=== PATIENT | male | born 1990 | race African-American/Black ===

== ENCOUNTER 2020-05-17 16:03 | Inpatient (IN) | payer SELFPAY, OTHER ==
[2020-05-17] MEDS ORDERED: ONDANSETRON 4 MG/2 ML VIAL ONE (16:35)
[2020-05-17] MEDS ORDERED: NA CHLORIDE 0.9% 1,000 ML ONE ×3 (16:35→18:54)
--- NOTE | 2020-05-17 16:56 | RAD REPORT ---
EXAM DESCRIPTION: Duy Single View05/17/2020 4:34 pm CLINICAL HISTORY: cough COMPARISON: none FINDINGS: The lungs appear clear of acute infiltrate. The heart is normal size IMPRESSION: No acute abnormalities displayed
[2020-05-17 17:53] LABS: Potassium 5.2 mmol/L (3.5-5.1)
[2020-05-17 17:58] LABS: Absolute Lymphocytes (CBC) 2.1 K/uL (0.7-4.9); Basophils % 0.8 % (0-1.3); Hematocrit 44.1 % (39.6-49.0); Lymphocytes % 10.5 % (15.3-44.8); MPV 11.8 fL (7.6-11.3); RBC Red Blood Cell Count 4.92 M/uL (4.33-5.43)
--- NOTE | 2020-05-17 18:46 | ER ---
Nurse's Notes [facility] Name: Joey Paiz Age: 29 yrs Sex: Male : 1990 Arrival Date: 05/17/2020 Time: 16:06 Bed 14 Private MD: Diagnosis: Diabetes mellitus due to underlying condition with ketoacidosis without coma Presentation: 05/17 16:06 Chief complaint: Patient states: nausea/vomiting, decreased appetite, SOB x 7 days. Has sv not eaten solid food in 7 days. Pt reports he came home from work and he passed out. Stated that his immediate family had COVID 2 weeks ago but quarantined himself away from them. Coronavirus screen: Client denies travel out of the [place] in the last 14 days. nausea, vomiting. Client presents with at least one sign or symptom that may indicate coronavirus-19. Standard/surgical mask placed on the client. Provider contacted for isolation considerations. Ebola Screen: No symptoms or risks identified at this time. Risk Assessment: Do you want to hurt yourself or someone else? Patient reports no desire to harm self or others. Onset of symptoms was May 17, 2020. 16:06 Method Of Arrival: Wheelchair sv 16:06 Acuity: CRISTO 2 sv 16:06 Initial Sepsis Screen: Does the patient meet any 2 criteria? RR > 20 per min. HR > 90 sv bpm. Yes Does the patient have a suspected source of infection? No. Patient's initial sepsis screen is negative. Triage Assessment: 16:11 General: Appears distressed, obese, Behavior is flat. Pain: Denies pain. Respiratory: ls4 Reports shortness of breath at rest labored breathing Airway is patent Respiratory effort is even, Respiratory pattern is tachypnea Breath sounds are clear bilaterally. Onset: The symptoms/episode began/occurred gradually, the patient has moderate shortness of breath Denies cough. GI: GI: Abdomen is obese, Bowel sounds hypoactive in right upper quadrant, left upper quadrant, right lower quadrant and left lower quadrant Abd is soft and non tender X 4 quads. : No deficits noted. No signs and/or symptoms were reported regarding the genitourinary system. Historical: - Allergies: 16:09 PENICILLINS; sv - PMHx: 16:09 None; sv Screenin:28 Abuse screen: Denies threats or abuse. Denies injuries from another. Nutritional ls4 screening: No deficits noted. Tuberculosis screening: No symptoms or risk factors identified. Fall Risk None identified. Assessment: 19:00 Reassessment: Assumed patient from Harleen Shirley RN. vc 19:00 General: Appears in no apparent distress. uncomfortable, Behavior is cooperative, vc quiet. Pain: Denies pain. Neuro: Level of Consciousness is awake, obeys commands, Oriented to person, place. Cardiovascular: Reports shortness of breath, Denies chest pain, Patient's skin is warm and dry. Rhythm is sinus tachycardia. Respiratory: Respiratory effort is even, unlabored, Respiratory pattern is tachypnea. GI: Reports nausea, vomiting. : Urine is clear. Derm: Skin is intact, is healthy with good turgor, Skin temperature is warm. 20:00 Reassessment: Patient and/or family updated on plan of care and expected duration. Pain vc level reassessed. Patient resting with eyes closed, chest rising and falling equally. 21:00 Reassessment: Patient and/or family updated on plan of care and expected duration. Pain vc level reassessed. Patient denies pain at this time. Patient states symptoms have improved. Vital Signs: 16:06 BP 156 / 143; Pulse 113; Resp 32; Temp 98.9; Pulse Ox 100% ; Weight 149.69 kg; Height 6 sv ft. 0 in. (182.88 cm); 17:39 BP 151 / 102; Pulse 107; Resp 24; Pulse Ox 99% on R/A; Pain 0/10; ls4 19:15 BP 156 / 111; Pulse 107; Resp 24; Pulse Ox 100% on R/A; vc 20:00 BP 155 / 102; Pulse 113; Resp 22; Pulse Ox 100% on R/A; vc 21:00 BP 139 / 91; Pulse 109; Resp 22; Pulse Ox 100% on R/A; vc 16:06 Body Mass Index 44.76 (149.69 kg, 182.88 cm) sv ED Course: 16:06 Patient arrived in ED. sv 16:07 Triage completed. sv 16:09 Arm band placed on. sv 16:13 lunchroom monitor on. Pulse ox on. NIBP on. sv 16:15 [facility]C [facility]. kb 16:15 Alpa Peterson MD is Attending Physician. kb 16:16 Report given to Harleen GARCIA. sv 16:17 Harleen Shirley, RN is Primary Nurse. ls4 16:34 Chest Single View XRAY In Process Unspecified. EDMS 17:35 Hemoglobin A1c Sent. ls4 17:35 COVID-19 Sent. ls4 18:45 Cirilo Reid MD is Hospitalizing Provider. kb 18:45 Gary Reid MD is Hospitalizing Provider. kb 19:00 Patient has correct armband on for positive identification. Placed in gown. Bed in low vc position. Call light in reach. Side rails up X2. 21:23 Primary Nurse role handed off by Harleen Shirley, RADHA rv 21:23 Wolf Pearl, RADHA is Primary Nurse. rv 21:23 No provider procedures requiring assistance completed. Patient admitted, IV remains in vc place. Administered Medications: 17:29 Drug: NS 0.9% 1000 ml Route: IV; Rate: 1000 ml; Site: right antecubital; ls4 17:35 Drug: NS 0.9% 1000 ml Route: IV; Rate: 1000 ml; Site: right antecubital; ls4 17:36 Drug: Zofran (Ondansetron) 4 mg Route: IVP; Site: right antecubital; ls4 18:49 Drug: NS 0.9% 1000 ml Route: IV; Rate: 125 ml/hr; Site: right antecubital; ls4 18:50 Drug: Insulin Drip - (Insulin Regular Human 100 units, NS 0.9% 100 ml) {Co-Signature: ls4 em (Miguel Ángel Espinoza RN).} Route: IV; Rate: calculated rate; Site: right antecubital; 20:05 Drug: Lovenox 150 mg Route: Sub-Q; Site: right lower abdomen; vc Outcome: 18:45 Decision to Hospitalize by Provider. kb 21:23 Patient left the ED. rv 21:23 Admitted to ICU accompanied by nurse, via stretcher, room ER-11, on monitor, with vc chart, Other On insulin drip 21:23 Condition: stable 21:23 Instructed on the need for admit. Signatures: Dispatcher [employer] EDMD Nani Mark, CARLIE-C BOX CLOSING MACHINE OPERATOR-Meli Dia, RN RN Wolf Stafford, RN RN Harleen Corrigan RN RN ls4 Kirsten Nevarez RN RN Miguel Ángel Espinoza RN em Corrections: (The following items were deleted from the chart) 16:09 16:06 Acuity: CRISTO 3 sv sv 16:16 16:06 Chief complaint: Patient states: vomiting, decreased appetite, SOB x 7 days. Pt sv reports he came home from work and he passed out. sv 16:17 16:06 Chief complaint: Patient states: vomiting, decreased appetite, SOB x 7 days. Pt sv reports he came home from work and he passed out. STated that his immediate family had COVID 2 weeks ago but quarantined himself away from them. sv 17:36 17:35 NS 0.9% 1000 ml IV at 1000 ml in left antecubital ls4 ls4
--- NOTE | 2020-05-17 18:46 | EDPHYS ---
Physician Documentation [facility] Name: Joey Paiz Age: 29 yrs Sex: Male : 1990 Arrival Date: 05/17/2020 Time: 16:06 Bed 14 Private MD: ED Physician Alpa Peterson HPI: 05/17 16:34 This 29 yrs old Black Male presents to ER via Wheelchair with complaints of Shortness kb Of Breath, Nausea/Vomiting, Syncope. 16:34 The patient or guardian reports cough, that is intermittent, described as moderate, kb with no sputum, difficulty breathing. Onset: The symptoms/episode began/occurred 7 day(s) ago. Severity of symptoms: At their worst the symptoms were moderate, in the emergency department the symptoms are unchanged. Modifying factors: The symptoms are alleviated by nothing, the symptoms are aggravated by nothing. Associated signs and symptoms: Pertinent positives: nausea, vomiting, Pertinent negatives: chest pain, diarrhea, ear ache, fever, rhinorrhea, sore throat. The patient has not experienced similar symptoms in the past. The patient has not recently seen a physician. Pt reports cough, shortness of breath, nausea, vomiting for 7 days. States he was working outside today and when he got home he passed out. Reports polyuria. States "I haven't eaten anything in a week.". Historical: - Allergies: 16:09 PENICILLINS; sv - PMHx: 16:09 None; sv ROS: 16:32 Constitutional: Negative for fever, chills, and weight loss, ENT: Negative for injury, kb pain, and discharge, Neck: Negative for injury, pain, and swelling, Cardiovascular: Negative for chest pain, palpitations, and edema, Back: Negative for injury and pain, MS/Extremity: Negative for injury and deformity, Skin: Negative for injury, rash, and discoloration, Neuro: Negative for headache, weakness, numbness, tingling, and seizure. 16:32 Respiratory: Positive for cough, with no reported sputum, shortness of breath. 16:32 Abdomen/GI: Positive for nausea and vomiting. 16:32 : Positive for polyuria. 16:35 Neuro: Positive for syncope. kb Exam: 16:32 Head/Face: Normocephalic, atraumatic. Chest/axilla: Normal chest wall appearance and kb motion. Nontender with no deformity. No lesions are appreciated. Cardiovascular: Regular rate and rhythm with a normal S1 and S2. No gallops, murmurs, or rubs. Normal PMI, no JVD. No pulse deficits. Abdomen/GI: Soft, non-tender, with normal bowel sounds. No distension or tympany. No guarding or rebound. No evidence of tenderness throughout. Skin: Warm, dry with normal turgor. Normal color with no rashes, no lesions, and no evidence of cellulitis. MS/ Extremity: Pulses equal, no cyanosis. Neurovascular intact. Full, normal range of motion. Neuro: Awake and alert, GCS 15, oriented to person, place, time, and situation. Cranial nerves II-XII grossly intact. Motor strength 5/5 in all extremities. Sensory grossly intact. Cerebellar exam normal. Normal gait. 16:32 Constitutional: The patient appears alert, awake, uncomfortable. 16:32 Respiratory: the patient does not display signs of respiratory distress, Respirations: tachypnea, Breath sounds: are clear throughout. 17:26 ECG was reviewed by the Attending Physician. Vital Signs: 16:06 BP 156 / 143; Pulse 113; Resp 32; Temp 98.9; Pulse Ox 100% ; Weight 149.69 kg; Height 6 sv ft. 0 in. (182.88 cm); 17:39 BP 151 / 102; Pulse 107; Resp 24; Pulse Ox 99% on R/A; Pain 0/10; ls4 19:15 BP 156 / 111; Pulse 107; Resp 24; Pulse Ox 100% on R/A; vc 20:00 BP 155 / 102; Pulse 113; Resp 22; Pulse Ox 100% on R/A; vc 21:00 BP 139 / 91; Pulse 109; Resp 22; Pulse Ox 100% on R/A; vc 16:06 Body Mass Index 44.76 (149.69 kg, 182.88 cm) sv MDM: 16:15 Patient medically screened. kb 16:34 Data reviewed: vital signs, nurses notes. Data interpreted: Pulse oximetry: on room air kb is 100 %. Interpretation: normal. 18:39 Counseling: I had a detailed discussion with the patient and/or guardian regarding: the kb historical points, exam findings, and any diagnostic results supporting the discharge/admit diagnosis, lab results, radiology results, the need for further work-up and treatment in the hospital. Physician consultation: Odin SAMANIEGO was contacted at 18:44, regarding admission, to the ICU, patient's condition, and will see patient in ED, shortly. 05/17 16:17 Order name: CBC with Diff; Complete Time: 17:59 kb 05/17 16:17 Order name: Basic Metabolic Panel; Complete Time: 17:56 kb 05/17 16:17 Order name: CPK; Complete Time: 17:56 kb 05/17 16:17 Order name: D-Dimer; Complete Time: 18:15 kb 05/17 16:23 Order name: COVID-19 kb 05/17 17:21 Order name: Acetone, Serum; Complete Time: 17:45 ss 05/17 17:23 Order name: Hemoglobin A1c kb 05/17 17:26 Order name: Glucose, Ancillary Testing; Complete Time: 17:27 EDMS 05/17 18:49 Order name: SARS-COV-2 RT PCR; Complete Time: 18:51 EDMS 05/17 19:00 Order name: Basic Metabolic Panel EDMS 05/17 19:00 Order name: Basic Metabolic Panel EDMS 05/17 19:00 Order name: Basic Metabolic Panel EDMS 05/17 19:00 Order name: Basic Metabolic Panel EDMS 05/17 19:00 Order name: Calcium Level EDMS 05/17 19:00 Order name: Calcium Level EDMS 05/17 19:00 Order name: Calcium Level EDMS 05/17 19:00 Order name: Calcium Level EDMS 05/17 19:00 Order name: CBC with Automated Diff EDMS 05/17 19:00 Order name: CBC with Automated Diff EDMS 05/17 19:00 Order name: CBC with Automated Diff EDMS 05/17 19:00 Order name: CBC with Automated Diff EDMS 05/17 19:00 Order name: Lipid Profile EDMS 05/17 19:00 Order name: Lipid Profile EDMS 05/17 19:00 Order name: Magnesium EDMS 05/17 19:00 Order name: Magnesium EDMS 05/17 19:00 Order name: Magnesium EDMS 05/17 19:00 Order name: Magnesium EDMS 05/17 19:00 Order name: Phosphorus EDMS 05/17 16:17 Order name: Chest Single View XRAY; Complete Time: 17:06 kb 05/17 16:17 Order name: EKG; Complete Time: 16:18 kb 05/17 16:17 Order name: EKG - Nurse/Tech; Complete Time: 17:37 kb 05/17 16:17 Order name: IV Start; Complete Time: 17:35 kb 05/17 16:23 Order name: Blood Glucose Level; Complete Time: 17:35 kb 05/17 19:00 Order name: CONS Diabetic Education Consul EDMS 05/17 19:00 Order name: CONS Pharmacy Consult EDMS 05/17 19:00 Order name: NPO EDMS 05/17 19:00 Order name: Phosphorus EDMS 05/17 19:00 Order name: Phosphorus EDMS 05/17 19:00 Order name: Phosphorus EDMS 05/17 19:17 Order name: Glucose, Ancillary Testing; Complete Time: 19:17 EDMS 05/17 20:53 Order name: Glucose, Ancillary Testing; Complete Time: 20:53 EDMS EC:26 Rate is 111 beats/min. Rhythm is regular. QRS Broussard is Normal. AL interval is normal at kb 140 msec. QRS interval is normal at 92 msec. QT interval is normal at 344 msec. Administered Medications: 17:29 Drug: NS 0.9% 1000 ml Route: IV; Rate: 1000 ml; Site: right antecubital; ls4 17:35 Drug: NS 0.9% 1000 ml Route: IV; Rate: 1000 ml; Site: right antecubital; ls4 17:36 Drug: Zofran (Ondansetron) 4 mg Route: IVP; Site: right antecubital; ls4 18:49 Drug: NS 0.9% 1000 ml Route: IV; Rate: 125 ml/hr; Site: right antecubital; ls4 18:50 Drug: Insulin Drip - (Insulin Regular Human 100 units, NS 0.9% 100 ml) {Co-Signature: ls4 em (Miguel Ángel Espinoza RN).} Route: IV; Rate: calculated rate; Site: right antecubital; 20:05 Drug: Lovenox 150 mg Route: Sub-Q; Site: right lower abdomen; vc Disposition: 05/17/20 18:45 Hospitalization ordered by Gary Reid for Inpatient Admission. Preliminary diagnosis is Diabetes mellitus due to underlying condition with ketoacidosis without coma. - Bed requested for Intensive Care Unit. - Status is Inpatient Admission. rv - Condition is Stable. - Problem is new. - Symptoms are unchanged. Signatures: Dispatcher [employer] EDVA Nani Mark, CARLIE-C LOGISTICS/SHIPPER-Meli Dia, RN RN sv Wolf Pearl RN RN rv Harleen Shirley, RADHA RN ls4 Kirsten Nevarez RN RN Miguel Ángel Espinoza RN em Corrections: (The following items were deleted from the chart) 17:41 16:23 CORONAVIRUS ordered. EDVA EDMS 17:42 16:19 CORONAVIRUS+MR.LAB.BRZ ordered. [facility] EDMS 21:23 18:45 Hospitalization Ordered by Gary Reid MD for Inpatient Admission. rv Preliminary diagnosis is Diabetes mellitus due to underlying condition with ketoacidosis without coma. Bed requested for Intensive Care Unit. Status is Inpatient Admission. Condition is Stable. Problem is new. Symptoms are unchanged. kb
[2020-05-17] MEDS ORDERED: INSULIN -REGULAR HUMAN 50 UNIT/0.5 ML ML ONE (18:54)
[2020-05-17] MEDS ORDERED: NA CHLORIDE 0.9% 100 ML IV ONE (18:54)
[2020-05-17] MEDS: INSULIN -REGULAR HUMAN 100 UNIT in NA CHLORIDE 0.9% 100 ML IV SCH (19:30)
[2020-05-17] MEDS ORDERED: D50W 25 GM/50 ML SYRINGE/VIAL IV PRN (19:43)
[2020-05-17] MEDS ORDERED: GLUCAGON 1 MG/VIAL IM PRN (19:43)
--- NOTE | 2020-05-17 19:48 | P.HP ---
Certification for Inpatient With expected LOS: >2 Midnights Patient will require the following post-hospital care: None Practitioner: I am a practitioner with admitting privileges, knowledge of patient current condition, hospital course, and medical plan of care. Services: Services provided to patient in accordance with Admission requirements found in Title 42 Section 412.3 of the Code of Federal Regulations <Odin Stubbs - Last Filed: 05/17/20 19:42> Patient History Date of Service: 05/17/20 Primary Care Provider: None Reason for admission: Diabetic ketoacidosis History of Present Illness: 29-year-old male morbidly obese with known past medical history presents to the emergency room complaining of shortness of breath, nausea and vomiting. Patient states that he has had polyuria and polydipsia and states it has been difficult to breathe. States that the onset has been the past 2 weeks but the last week he has had nausea, vomiting that has progressively worsened. Today he states he was working outside on his vehicle and when he got home he passed out. Patient states he has not been able the eat anything in the week. In the emergency room patient's lab work is significantly abnormal. He is found to be in diabetic ketoacidosis with a calculated gap of 25. Glucose levels 0707, elevated D-dimer of 795, creatinine of 1.71, white cell count of 19.9 and a moderate to high acetone. This is likely a new diagnosis of diabetes. Patient was started on insulin drip, bolused IV fluids which improved the patient is feeling. On physical exam patient is alert and oriented x4. He is in no distress but is complaining of being extremely thirsty. Patient also admits to having several family members that are Covid positive but states he has been very careful and has been isolating himself from them. In the emergency room his rapid Covid screening was negative. Home medications list reviewed: Yes (No medication) - Past Medical/Surgical History Has patient received pneumonia vaccine in the past: No Diabetic: Yes -: New diagnosis diabetes mellitus -: More obesity -: None Psychosocial/ Personal History: Lives at home with fiancee - Social History Smoking Status: Current every day smoker Smoking therapy provided: No Patient receptive to therapy: No Alcohol use: No CD- Drugs: No Caffeine use: No Place of Residence: Home <Odin Stubbs - Last Filed: 05/17/20 19:42> Date of Service: 05/18/20 - Family History Family History: Reviewed- Non-Contributory <Giovanni Sheikh - Last Filed: 05/18/20 17:07> Allergies Penicillins Allergy (Verified 05/17/20 19:43) Anaphylaxis Review of Systems General: Other (Polydipsia ), As per HPI Eyes: Unremarkable ENT: Unremarkable Respiratory: Shortness of Breath Cardiovascular: Unremarkable Gastrointestinal: Nausea, Vomiting Genitourinary: Frequency Musculoskeletal: Unremarkable Integumentary: As per HPI Neurological: As per HPI Lymphatics: Unremarkable <Odin Stubbs - Last Filed: 05/17/20 19:42> Physical Examination - Vital Signs Temperature: 98.9 F Blood Pressure: 151/102 Pulse: 107 Respirations: 24 Pulse Ox (%): 99 (RA) - Physical Exam General: Alert, In no apparent distress, Oriented x3 HEENT: Atraumatic, Normocephalic, PERRLA, Mucous membr. moist/pink Neck: Supple, Other (Trachea midline) Respiratory: Clear to auscultation bilaterally, Normal air movement Cardiovascular: No edema, Normal pulses, Normal S1 S2 Capillary refill: <2 Seconds Gastrointestinal: Normal bowel sounds, Soft and benign Musculoskeletal: No clubbing, No swelling, No contractures, No erythema Integumentary: No rashes, No breakdown, No significant lesion Neurological: Normal gait, Normal speech, Normal strength at 5/5 x4 extr, Normal tone - Studies Laboratory Data (last 24 hrs) 05/17/20 17:08: Sodium 126 L, Potassium 5.2 H, BUN 23 H, Creatinine 1.71 H, Glucose 707 H* 05/17/20 17:08: WBC 19.9 H, Hgb 13.8, Hct 44.1, Plt Count 296 <Odin Stubbs - Last Filed: 05/17/20 19:42> - Studies Laboratory Data (last 24 hrs) 05/17/20 17:08: Sodium 126 L, Potassium 5.2 H, BUN 23 H, Creatinine 1.71 H, Glucose 707 H* 05/17/20 17:08: WBC 19.9 H, Hgb 13.8, Hct 44.1, Plt Count 296 <Giovanni Sheikh - Last Filed: 05/18/20 17:07> Assessment and Plan - Plan Impression: Diabetic ketoacidosis likely new diagnosis: Diabetes mellitus-new diagnosis: Metabolic acidosis: Acute kidney injury: Shortness of breath with an elevated D-dimer: Leukocytosis: Plan: Diabetic ketoacidosis likely new diagnosis: Patient was found to have a gap of 25, glucose levels of 707. He was started on an insulin drip and given IV fluids. Patient is stable, alert and oriented times and in no distress. Can have ice chips. Monitor vital per protocol. Diabetes mellitus-new diagnosis: Patient found to have blood glucose of 707 on admission to ED. This is likely a new diagnosis of diabetes mellitus. Will need diabetic education and medications prior to discharge. Also follow up with PCP patient does not have a PCP. Metabolic acidosis: Secondary to diabetic ketoacidosis. Monitor labs per protocol. Acute kidney injury: Likely secondary to dehydration from diabetic ketoacidosis and working outdoors all day. Monitor creatinine levels. Shortness of breath with an elevated D-dimer: Patient's Covid screening was negative despite having several family members positive at home. Patient did have an elevated D-dimer and was complaining of shortness of breath but due to elevation in creatinine levels CT a PE protocol to rule out a PE cannot be done at this time. Will cover patient with Lovenox 1 mg/kg for now until CTA to rule out PE can be completed. Patient's O2 saturations are 98% to 100% on room air. Leukocytosis: Etiology unclear. Patient does not appear septic and does not appear to have an infection. Will cover empirically with Rocephin and azithromycin. Patient is allergic to penicillins. Will adjust antibiotic medications as needed. Discharge Plan: Home Plan to discharge in: Greater than 2 days - Advance Directives Does patient have a Living Will: No Does patient have a Durable POA for Healthcare: No - Code Status/Comfort Care Code Status Assessed: Yes Time Spent Managing Pts Care (In Minutes): 55 <Odin Stubbs - Last Filed: 05/17/20 19:42> - Plan Case discussed in detail with physician guest services assistant. Patient also found to have right upper back abscess. This was addressed in detail with surgery. Please see progress note for details. <Giovanni Sheikh - Last Filed: 05/18/20 17:07>
[2020-05-17] MEDS: NACHLORIDE 0.45% 1,000 ML IV SCH (20:00)
[2020-05-17] MEDS ORDERED: ENOXAPARIN 100 MG/ML SYR SQ ONE (20:13)
[2020-05-17] MEDS ORDERED: NACHLORIDE 0.45% 1,000 ML IV ONE (20:25)
[2020-05-17 21:48] VITALS: BMI 47.5
[2020-05-17 22:42] LABS: Potassium 4.3 mmol/L (3.5-5.1)
[2020-05-17 23:19] LABS: Urine Appearance CLOUDY; Urine Blood 2+ (NEG); Urine Color YELLOW; Urine Glucose 3+ (NEG); Urine Protein 2+ (NEG); Urine Specific Gravity >=1.030 (1.005-1.030); Urine pH 5.5 (5.0-7.0)
[2020-05-17 23:42] LABS: Urine Microscopic Reflex ORDER UMIC
[2020-05-18 00:09] LABS: Urine Bilirubin NEGATIVE (NEG)
[2020-05-18] MEDS: NACHLORIDE 0.45% 1,000 ML IV SCH ×5 (00:34→20:04)
[2020-05-18] MEDS: HEPARIN 5000 UNIT/ML 1 ML VIAL SQ SCH ×3 (00:35→21:15)
[2020-05-18] MEDS ORDERED: HEPARIN 5000 UNIT/ML 1 ML VIAL ONE ×2 (00:44→20:36)
[2020-05-18] MEDS ORDERED: NACHLORIDE 0.45% 1,000 ML IV ONE ×2 (00:44→04:43)
[2020-05-18 00:46] LABS: Urine Coarse Granular Casts 0-5 /LPF (NONE SEEN)
[2020-05-18 00:47] LABS: Urine Bacteria 20-50 /HPF (NONE SEEN); Urine Culture Reflex Order REFLEXED; Urine RBC <5 /HPF (NONE SEEN); Urine Urothelial Cells <5 /HPF (NONE SEEN); Urine Yeast FEW (NONE SEEN)
[2020-05-18] MEDS ORDERED: PIPER/TAZO/NS 3.375gm 100 ML IV SCH (01:00)
[2020-05-18] MEDS: D5 0.45 NS 1,000 ML IV SCH ×5 (01:40→21:15)
[2020-05-18] MEDS: INSULIN -REGULAR HUMAN 100 UNIT in NA CHLORIDE 0.9% 100 ML IV SCH (04:46)
[2020-05-18] MEDS ORDERED: NA CHLORIDE 0.9% 100 ML IV ONE (04:47)
[2020-05-18] MEDS ORDERED: INSULIN -REGULAR HUMAN 50 UNIT/0.5 ML ML ONE (04:47)
[2020-05-18 06:02] LABS: Absolute Lymphocytes (CBC) 1.4 K/uL (0.7-4.9); Basophils % 0.5 % (0-1.3); Hematocrit 39.1 % (39.6-49.0); Lymphocytes % 7.2 % (15.3-44.8); MPV 10.9 fL (7.6-11.3); RBC Red Blood Cell Count 4.44 M/uL (4.33-5.43)
[2020-05-18 06:17] LABS: Magnesium 2.5 mg/dL (1.8-2.4); Phosphorus 2.1 mg/dL (2.5-4.9)
[2020-05-18 06:50] LABS: Potassium 4.1 mmol/L (3.5-5.1)
[2020-05-18 08:25] LABS: Thyroid Stimulating Hormone 0.164 uIU/mL (0.360-3.740)
[2020-05-18] MEDS ORDERED: CEFTRIAXONE 1 GM/NS 50 ML 1 GM/50 ML BAG IV SCH (09:00)
[2020-05-18] MEDS ORDERED: AZITHROMYCIN IV 500 MG in NA CHLORIDE 0.9% 250 ML IVPB SCH (09:00)
[2020-05-18] MEDS ORDERED: Levofloxacin 750mg IV 0 MG/0 ML BAG IV ONE (09:14)
[2020-05-18] MEDS ORDERED: Levofloxacin500mg IV 500 MG/100 ML BAG IV ONE (09:37)
--- NOTE | 2020-05-18 09:39 | P.PN ---
Subjective Date of Service: 05/18/20 Primary Care Provider: None Chief Complaint: Diabetic ketoacidosis Subjective: Other (Patient appears improved. No significant nausea vomiting. Patient noted to have a abscess to the right upper back.) Physical Examination - Vital Signs Temperature: 99.1 F Blood Pressure: 123/87 Pulse: 99 Respirations: 22 Pulse Ox (%): 100 - Physical Exam General: Alert, In no apparent distress, Cooperative HEENT: Atraumatic Neck: Supple Respiratory: Clear to auscultation bilaterally, Normal air movement Cardiovascular: Normal pulses, Regular rate/rhythm Gastrointestinal: Normal bowel sounds, No tenderness, No masses, No rebound, No guarding Integumentary: Other (Abscess to the right upper back. Fluctuance noted. Exudate noted with compression. Area is about 2-3 inches in diameter.) Neurological: Normal speech, Normal strength at 5/5 x4 extr, Normal tone, Normal affect - Studies Laboratory Data (last 24 hrs) 05/17/20 17:08: Sodium 126 L, Potassium 5.2 H, BUN 23 H, Creatinine 1.71 H, Glucose 707 H* 05/17/20 17:08: WBC 19.9 H, Hgb 13.8, Hct 44.1, Plt Count 296 Medications List Reviewed: Yes Assessment & Plan Discharge Plan: Home Plan to discharge in: 48 Hours Physician Review Additional Text: Impression: Diabetic ketoacidosis with new diagnosis of diabetes type 2 Leukocytosis secondary to Right upper back abscess Hyperlipidemia Obesity, BMI 47.5 Plan: Diabetic ketoacidosis with new diagnosis of diabetes type 2: Continue with insulin drip. Continue IV fluids. Continue to monitor closely and adjust IV fluids and insulin. Gap still not close. Once gap closed will adjust insulin accordingly. Will obtain A1c. Patient will likely require long-term insulin therapy. Patient will need diabetic education once medically stable. Leukocytosis secondary to Right upper back abscess: Spoke with surgery. Plan is for surgical intervention/irrigation and debridement. Continue antibiotic therapy. Obtain blood and wound culture. Hyperlipidemia: Patient will require medication once taking good oral intake. Obesity, BMI 47.5: Will address lifestyle modification education. Time Spent Managing Pts Care (In Minutes): 55
[2020-05-18] MEDS: Levofloxacin500mg IV 500 MG/100 ML BAG IV SCH (09:43)
[2020-05-18] MEDS: NA CHLORIDE 0.9% 500 ML ONE ×2 (09:45→10:53)
[2020-05-18 09:49] LABS: Potassium 4.1 mmol/L (3.5-5.1)
[2020-05-18] MEDS ORDERED: SODIUM BICARB 50 MEQ/50ML VIAL ONE (10:13)
[2020-05-18] MEDS: VANCOMYCIN 2 GM in NA CHLORIDE 0.9% 500 ML IVPB SCH ×2 (10:19→20:00)
[2020-05-18] MEDS ORDERED: MIDAZOLAM HCL 2 MG/2 ML INJ ONE (10:59)
[2020-05-18] MEDS ORDERED: LIDOCAINE 1% MPF 5 ML VIAL ONE (10:59)
[2020-05-18] MEDS ORDERED: FENTANYL CITR 100 MCG/2 ML ONE ×2 (10:59→11:44)
[2020-05-18] MEDS ORDERED: propofoL 200 MG/20 ML VIAL IV ONE (10:59)
[2020-05-18] MEDS ORDERED: ROCURONIUM 50 MG/5 ML VIAL IV ONE (11:26)
[2020-05-18] MEDS ORDERED: ONDANSETRON 4 MG/2 ML VIAL ONE ×2 (11:39→20:36)
[2020-05-18] MEDS ORDERED: KETOROLAC 30 MG/ML INJ ONE (11:39)
[2020-05-18] MEDS ORDERED: dexAMETHasone 10 MG/ML VIAL ONE (11:39)
--- NOTE | 2020-05-18 11:41 | P.OP ---
Blacking Machine Operator: NONE,NONE Preoperative diagnosis: Abscess and cellulitis right back Postoperative diagnosis: same Primary procedure: I and D and Debridement Right Back Abscess Anesthesia: General Estimated blood loss: min Specimen: C&S Findings: as above Complications: None Transferred to: Recovery Room Condition: Good
[2020-05-18] MEDS ORDERED: HYDROCODONE/APAP 7.5/325 MG TAB PO PRN (11:43)
[2020-05-18] MEDS ORDERED: METOCLOPRAMIDE 10 MG/2mL INJ ONE (11:43)
--- NOTE | 2020-05-18 11:43 | PREOPCON ---
Date of Consultation: 05/18/2020 Reason: Abscess, right back. History Of Present Illness: The patient is a 29-year-old gentleman who comes in with shortness of br eath. No nausea or vomiting. Workup revealed diabetic ketoacidosis and was found to have an abscess with leukocytosis in the back. I was consulted. He is awake, alert, thirsty. He did not know he mathew d diabetes prior to this event. He denies any sore throat, runny nose, cough, headaches, or dizzines s. No chest pain. He has several family members who were COVID positive. In the ER, his rapid COVI D screen was negative. He is anorexic and no fever or chills. Review of Systems: Otherwise unremarkable. Past Medical History: Newly-diagnosed diabetes, morbid obesity. Past Surgical History: No surgeries before. Allergies: PENICILLIN. Social History: He does smoke. Denies drinking. Family History: Noncontributory. Physical Examination: Vital signs: He is hypertensive slightly, 151/102; pulse rate is 107; respirations 24. His temperat ure is 98.9. General: He is awake and alert. Dry mucous membranes. Head and neck: Cranial nerves 2 through 12 grossly within normal limits. No neck masses. No JVD. Throat clear. Neck is supple. Chest: Clear. Heart: S1 and S2. Abdomen: Soft, nondistended, nontender. Positive bowel sounds. Extremities: Neurovascularly intact. Neurologic: Nonfocal. Back: Right back, there is an area of approximately 10 x 10 cm that is warm with induration with hugo tral fluctuance and some necrosis in the middle of it. Laboratory Data: White count is 19.3 with a left shift. Chemistry reviewed. His triglycerides and cholesterol are elevated. Glucose is still around 300. CO2 is 10. CRP is 27.5. Procalcitonin is 0. 08. Assessment: Abscess, cellulitis, right back with diabetic ketoacidosis. Recommendations: Continue antibiotics, resuscitation and when medically stable, we will proceed with incision, drainage and debridement of the right back abscess. The patient understands the risks, be nefits, and alternatives and agrees to the procedure. /MODL Voice ID: [id number] Report ID: [id number]
[2020-05-18 12:24] VITALS: O2SAT 95
[2020-05-18] MEDS ORDERED: SUCCINYLCHOLINE 20 MG/ML (10 ML) IV ONE (12:40)
[2020-05-18] MEDS ORDERED: METOPROLOL TARTRATE 5 MG/5 ML INJ IV PRN (13:29)
[2020-05-18] MEDS ORDERED: D5 0.2 NS 0 ML IV ONE (14:27)
[2020-05-18] MEDS ORDERED: D5 0.45 NS 1,000 ML IV ONE ×2 (14:28→21:25)
[2020-05-18 16:27] LABS: Potassium 4.2 mmol/L (3.5-5.1)
[2020-05-18] MEDS: ONDANSETRON 4 MG/2 ML VIAL IV PRN (20:30)
[2020-05-18] MEDS ORDERED: VANCOMYCIN 1 GM/VIAL ONE (20:37)
[2020-05-18] MEDS ORDERED: NA CHLORIDE 0.9% 500 ML ONE (20:37)
[2020-05-18 21:09] LABS: Potassium 4.8 mmol/L (3.5-5.1)
[2020-05-18] MEDS ORDERED: NA CHLORIDE 0.9% 1,000 ML IV ONE (21:34)
[2020-05-18 22:12] LABS: Arterial Blood Carboxyhemoglob 2.7 % (0-1.5); Blood Gas Oxyhemoglobin 95.1 % (94-97); Blood O2 Saturation 98.6 % (92-98.5)
--- NOTE | 2020-05-18 22:53 | OP ---
Date of Procedure: 05/18/2020 Surgeon: Josue Shepard MD Manager Production: None. Preoperative Diagnosis: Right back abscess and cellulitis. Postoperative Diagnosis: Right back abscess and cellulitis. Procedure: Incision, drainage, and debridement of right back abscess. Specimens: Culture and sensitivity and debridement tissue. Findings: As above. Anesthesia: General. Complications: None. The patient tolerated the procedure in stable condition, taken to Recovery in good general condition. Procedure In Detail: The patient was brought to the OR and placed in supine position. General anest hesia was begun. The patient was placed in the left lateral position, prepped and draped in the usua l sterile fashion. Lidocaine 1% was infiltrated in a field block fashion. A 15-blade was used to ma ke approximately a 6 x 3 cm incision to excise the necrotic tissue that was present in the central of the abscess and then pus was evacuated, loculation were broken up, necrotic tissue debrided all the way down to some healthy tissue. Wound irrigated. Bleeding controlled with cautery and then wet-to- dry normal saline dressing change applied. The patient tolerated the procedure in stable condition, taken to Recovery in good general condition. /MODL Voice ID: [id number] Report ID: [id number]
[2020-05-18] MEDS ORDERED: NA CHLORIDE 0.9% 1,000 ML ONE (23:12)
[2020-05-19 00:47] LABS: Potassium 4.1 mmol/L (3.5-5.1)
[2020-05-19] MEDS: NACHLORIDE 0.45% 1,000 ML IV SCH ×4 (02:44→22:42)
[2020-05-19] MEDS: D5 0.45 NS 1,000 ML IV SCH ×3 (04:20→17:40)
[2020-05-19] MEDS ORDERED: INSULIN -REGULAR HUMAN 50 UNIT/0.5 ML ML ONE (04:23)
[2020-05-19] MEDS ORDERED: NA CHLORIDE 0.9% 100 ML IV ONE (04:23)
[2020-05-19] MEDS: INSULIN -REGULAR HUMAN 100 UNIT in NA CHLORIDE 0.9% 100 ML IV SCH (04:26)
[2020-05-19 04:46] LABS: Basophils % 0.6 % (0-1.3); Hematocrit 38.1 % (39.6-49.0); Lymphocytes % 8.5 % (15.3-44.8); MPV 10.4 fL (7.6-11.3); RBC Red Blood Cell Count 4.38 M/uL (4.33-5.43)
[2020-05-19 05:05] LABS: Magnesium 2.5 mg/dL (1.8-2.4); Phosphorus 1.1 mg/dL (2.5-4.9); Potassium 3.6 mmol/L (3.5-5.1)
[2020-05-19] MEDS ORDERED: NA CHLORIDE 0.9% 0 ML ONE (06:25)
[2020-05-19] MEDS ORDERED: NACHLORIDE 0.45% 1,000 ML IV ONE ×2 (06:27→14:27)
[2020-05-19] MEDS ORDERED: POTASSIUM PHOS IN 0.9 % NACL 15 MMOL/250 ML BAG IV ONE (07:00)
--- NOTE | 2020-05-19 07:01 | EKG ---
Test Date: 2020-05-17 Test Time: 17:08:24 Sheet Pile Hammer Operator: CHERIE MEASUREMENT RESULTS: Intervals: Rate: 111 MD: 140 QRSD: 92 QT: 344 QTc: 467 [place]: P: 66 MD: 140 QRS: 47 T: 37 INTERPRETIVE STATEMENTS: Sinus tachycardia Otherwise normal ECG No previous ECG available for comparison Electronically Signed On 05-19-20 07:00:11 CDT by Laureano Leon
[2020-05-19] MEDS: ONDANSETRON 4 MG/2 ML VIAL IV PRN (09:28)
[2020-05-19] MEDS ORDERED: ONDANSETRON 4 MG/2 ML VIAL ONE (09:32)
[2020-05-19] MEDS ORDERED: HEPARIN 5000 UNIT/ML 1 ML VIAL ONE ×2 (09:32→21:02)
[2020-05-19 09:43] LABS: BUN Blood Urea Nitrogen 11 mg/dL (7-18); Bicarbonate 19 mmol/L (21-32); Glucose Level 199 mg/dL (74-106); Potassium 3.3 mmol/L (3.5-5.1); Sodium Level 140 mmol/L (136-145)
[2020-05-19] MEDS: Levofloxacin500mg IV 500 MG/100 ML BAG IV SCH (09:49)
[2020-05-19] MEDS ORDERED: Levofloxacin500mg IV 500 MG/100 ML BAG IV ONE (09:55)
[2020-05-19] MEDS ORDERED: CHLORHEXIDINE GLUCO 4% 120 ML TOP SCH (10:00)
[2020-05-19] MEDS: VANCOMYCIN 2 GM in NA CHLORIDE 0.9% 500 ML IVPB SCH ×2 (10:18→22:37)
[2020-05-19] MEDS: HEPARIN 5000 UNIT/ML 1 ML VIAL SQ SCH ×2 (10:20→22:40)
--- NOTE | 2020-05-19 12:37 | P.PN ---
Subjective Date of Service: 05/19/20 Primary Care Provider: None Chief Complaint: Diabetic ketoacidosis Subjective: Improving Physical Examination - Vital Signs Temperature: 98.3 F Blood Pressure: 142/67 Pulse: 89 Respirations: 22 Pulse Ox (%): 99 - Physical Exam General: Alert, In no apparent distress, Cooperative HEENT: Atraumatic Neck: Supple Respiratory: Clear to auscultation bilaterally, Normal air movement Cardiovascular: Normal pulses, Regular rate/rhythm Gastrointestinal: Normal bowel sounds, Soft and benign, Non-distended Neurological: Normal speech, Normal strength at 5/5 x4 extr, Normal tone, Normal affect - Studies Medications List Reviewed: Yes Assessment & Plan Discharge Plan: Home Plan to discharge in: 24 Hours Physician Review Additional Text: Impression: Diabetic ketoacidosis with new diagnosis of diabetes type 2 Leukocytosis secondary to Right upper back abscess/cellulitis related to ruptured epidermal inclusion cyst status post incision, irrigation, debridement Hyperlipidemia Elevated blood pressure suspect hypertension Obesity, BMI 47.5 Plan: Diabetic ketoacidosis with new diagnosis of diabetes type 2: Gap has closed. Will discontinue insulin drip. Will start 2000 ADA diet. Will also start Lantus 20 units subcu daily. Continue moderate sliding scale. Will monitor closely. Continue IV fluids. Will teach on diabetes. Patient will required insulin at discharge. Will also teach about insulin. Anticipate improvement over the next 24 hr with possible discharge at that time. Leukocytosis secondary to Right upper back abscess/cellulitis related to ruptured epidural inclusion cyst status post incision, irrigation, debridement: Continue with current wound care. Continue IV antibiotic therapy. Await wound culture results. Likely discharge tomorrow with oral antibiotics to cover for methicillin-resistant Staph aureus. Will teach on wound care. Hyperlipidemia: Patient will require medication once taking good oral intake. Elevated blood pressure suspect hypertension: Will start carvedilol. Obesity, BMI 47.5: Continue to address lifestyle modification education. Time Spent Managing Pts Care (In Minutes): 55
[2020-05-19] MEDS ORDERED: INSULIN GLARGINE 100 UNITS/ML SQ SCH (13:00)
--- NOTE | 2020-05-19 13:21 | PN ---
Date of Progress Note: 05/19/2020 Subjective: Patient is awake, alert, feels better. Objective: Vital Signs: Stable. He is currently afebrile. Laboratory Data: Shows his white count to be down to 12,000, slight left shift. However, his glucos e is still greater than 200 and his anion gap is being corrected. His dressing is clean, dry and int act. Assessment: Status post incision and drainage and debridement of a back abscess in a patient with di abetic ketoacidosis. Recommendations: Continue IV antibiotics. Check cultures and adjust antibiotics accordingly. Wound care is ordered and medical management per the Hospitalist Service. /MODL Voice ID: [id number] Report ID: [id number]
[2020-05-19] MEDS: INSULIN -REGULAR HUMAN 50 UNIT/0.5 ML ML SQ SCH ×4 (14:00→22:40)
[2020-05-19] MEDS ORDERED: INSULIN GLARGINE 100 UNITS/ML SQ ONE (14:24)
[2020-05-19] MEDS ORDERED: KCL 20 MEQ/100 mL IVPB 40 MEQ/200 ML BAG IV ONE (16:22)
[2020-05-19] MEDS: KCL 20 MEQ/100 mL IVPB 20 MEQ/100 ML BAG IV SCH ×2 (17:00→19:00)
[2020-05-19] MEDS: carvediloL 3.125 MG TAB PO SCH (18:06)
[2020-05-19] MEDS ORDERED: POTASSIUM CL SA 10 MEQ TAB PO ONE ×2 (18:30→19:22)
[2020-05-19] MEDS ORDERED: MUPIROCIN 2% OINT 22GM TUBE TOP ONE (21:01)
[2020-05-19] MEDS ORDERED: NA CHLORIDE 0.9% 500 ML ONE (21:09)
[2020-05-19] MEDS ORDERED: VANCOMYCIN 1 GM/VIAL ONE (21:09)
[2020-05-19] MEDS: MUPIROCIN 2% OINT 22GM TUBE TOP SCH (22:41)
[2020-05-20] MEDS: D5 0.45 NS 1,000 ML IV SCH (00:20)
[2020-05-20 04:39] LABS: Absolute Lymphocytes (CBC) 1.2 K/uL (0.7-4.9); Basophils % 0.4 % (0-1.3); Hematocrit 34.6 % (39.6-49.0); Lymphocytes % 15.1 % (15.3-44.8); MPV 10.9 fL (7.6-11.3); RBC Red Blood Cell Count 3.94 M/uL (4.33-5.43)
[2020-05-20 04:56] LABS: BUN Blood Urea Nitrogen 11 mg/dL (7-18); Bicarbonate 17 mmol/L (21-32); Glucose Level 363 mg/dL (74-106); Magnesium 2.3 mg/dL (1.8-2.4); Phosphorus 1.7 mg/dL (2.5-4.9); Potassium 3.3 mmol/L (3.5-5.1); Sodium Level 138 mmol/L (136-145)
[2020-05-20] MEDS ORDERED: carvediloL 6.25 MG TAB ONE (05:34)
[2020-05-20] MEDS ORDERED: D5 0.45 NS 1,000 ML IV ONE (05:34)
[2020-05-20] MEDS ORDERED: SODIUM BICARB 50 MEQ/50ML VIAL ONE (05:34)
[2020-05-20] MEDS: KCL 20 MEQ/100 mL IVPB 20 MEQ/100 ML BAG IV SCH ×2 (05:39→07:46)
[2020-05-20] MEDS: NACHLORIDE 0.45% 1,000 ML IV SCH (05:39)
[2020-05-20] MEDS: carvediloL 3.125 MG TAB PO SCH (05:40)
[2020-05-20] MEDS ORDERED: NACHLORIDE 0.45% 1,000 ML IV ONE (05:49)
[2020-05-20] MEDS: VANCOMYCIN 2 GM in NA CHLORIDE 0.9% 500 ML IVPB SCH (08:00)
[2020-05-20] MEDS ORDERED: INSULIN GLARGINE 100 UNITS/ML SQ SCH ×2 (08:00→09:00)
[2020-05-20] MEDS: Levofloxacin500mg IV 500 MG/100 ML BAG IV SCH (08:08)
[2020-05-20] MEDS: INSULIN -REGULAR HUMAN 50 UNIT/0.5 ML ML SQ SCH ×3 (08:08→16:40)
[2020-05-20] MEDS: HEPARIN 5000 UNIT/ML 1 ML VIAL SQ SCH (08:09)
[2020-05-20] MEDS: MUPIROCIN 2% OINT 22GM TUBE TOP SCH (08:09)
[2020-05-20] MEDS ORDERED: Levofloxacin500mg IV 500 MG/100 ML BAG IV ONE (08:15)
[2020-05-20] MEDS ORDERED: HEPARIN 5000 UNIT/ML 1 ML VIAL ONE (08:16)
[2020-05-20] MEDS ORDERED: INSULIN GLARGINE 100 UNITS/ML SQ ONE (08:18)
[2020-05-20] MEDS ORDERED: INSULIN -REGULAR HUMAN 50 UNIT/0.5 ML ML ONE ×3 (08:19→16:35)
[2020-05-20] MEDS ORDERED: VANCOMYCIN 2.25 GM in NA CHLORIDE 0.9% 500 ML IVPB SCH (09:00)
--- NOTE | 2020-05-20 13:55 | P.DS ---
Admission Date: 05/17/20 Discharge Date: 05/20/20 Primary Care Provider: None Disposition: ROUTINE DISCHARGE Discharge Condition: GOOD Reason for Admission: Diabetic ketoacidosis Consultations: Surgery-Dr. 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 Preoperative Diagnosis: Right back abscess and cellulitis. Postoperative Diagnosis: Right back abscess and cellulitis. Procedure: Incision, drainage, and debridement of right back abscess. Specimens: Culture and sensitivity and debridement tissue. Medical Problem List: Diabetic ketoacidosis with new diagnosis of diabetes type 2 Leukocytosis secondary to Right upper back abscess/cellulitis related to ruptured epidermal inclusion cyst status post incision, irrigation, debridement, wound culture positive for Staph aureus Hyperlipidemia HTN Obesity, BMI 47.5 Suspect obstructive sleep apnea Brief History of Present Illness: 29-year-old male presented with nausea, vomiting, polyuria and polydipsia. Patient found to have DKA. This was a new diagnosis of diabetes. Patient admitted for DKA treatment. Patient also found to have abscess to the right upper back. Hospital Course: Patient presented with diabetic ketoacidosis. Patient with new diagnosis diabetes type 2. Patient was admitted for treatment. Patient required IV insulin drip. Diabetic ketoacidosis resolved. Hemoglobin A1c 11.4. Patient was transition to basal insulin. Blood sugars now better controlled. At discharge patient will continue to monitor blood sugars at least twice daily. At discharge patient will continue with metformin 500 mg 1 pill twice daily and insulin NPH 25 units subcu twice daily. Recommend to maintain blood sugars less 140 fasting and less than 200 after meals. Patient may increase insulin NPH by 1-2 units if blood sugar still above 200. Metformin can be further adjusted with the help of a PCP. Education on diabetes and insulin therapy provided. Patient will continue with a 2000 ADA diet. Patient will follow up with a PCP to follow up this hospitalization and to better control his diabetes. Patient found to have leukocytosis. Patient found to have right upper back abscess/cellulitis. Surgery was consulted. Surgical intervention was required. Incision, irrigation debridement was performed. Patient tolerated procedure well. Pathology shows ruptured epidermal inclusion cyst. Wound culture positiv e for Staph aureus. At discharge patient will continue with current wound care as recommended by surgery. Family will be taught to help patient. Patient will continue with Cipro 500 mg 1 pill twice daily and doxycycline 100 mg 1 pill twice daily for 7 more days. Bactroban ointment to be placed to the umbilicus and nares twice daily for 7 days. Patient will [facility]. Patient also found to have elevated blood pressure. Hypertension was suspected. Patient was started on medication. Blood pressure now better controlled on medication. At discharge he will continue with carvedilol 12.5 mg 1 pill twice daily. May need to hold medication if blood pressure less than 110 systolic. Recommend to monitor blood pressure daily. Recommend to maintain blood pressure less 150/80. Further adjustment can be done by his PCP. Patient with hyperlipidemia. LDL elevated. Will recommend to start lifestyle modification education and 2000 ADA diet. Recommend to recheck lab in 4-6 weeks. If still elevated will consider medical therapy. This can be addressed by his PCP. Patient with obesity, BMI 47.5. Patient likely with underlying obstructive sleep apnea. Recommend sleep study to be done as an outpatient to further evaluate and address. Patient will continue with lifestyle modification education. Vital Signs/Physical Exam: Temp Pulse Resp BP Pulse Ox 99.5 F 96 H 18 147/81 H 100 05/20/20 07:00 05/20/20 09:00 05/20/20 09:00 05/20/20 09:00 05/20/20 05:00 General: Alert, In no apparent distress, Oriented x3, Cooperative HEENT: Atraumatic Neck: Supple Respiratory: Clear to auscultation bilaterally, Normal air movement Cardiovascular: Normal pulses, Regular rate/rhythm Gastrointestinal: Normal bowel sounds, Soft and benign, Non-distended, No guarding Integumentary: Other (Bandage to the right upper back noted) Neurological: Normal speech, Normal strength at 5/5 x4 extr, Normal tone, Normal affect Laboratory Data at Discharge: WBC 7.9 K/uL (4.3-10.9) D 05/20/20 04:14 Hgb 11.2 g/dL (13.6-17.9) L 05/20/20 04:14 Hct 34.6 % (39.6-49.0) L 05/20/20 04:14 Plt Count 268 K/uL (152-406) 05/20/20 04:14 Sodium 138 mmol/L (136-145) 05/20/20 04:14 Potassium 3.3 mmol/L (3.5-5.1) L 05/20/20 04:14 BUN 11 mg/dL (7-18) 05/20/20 04:14 Creatinine 0.95 mg/dL (0.55-1.3) 05/20/20 04:14 Glucose 363 mg/dL (74-106) H 05/20/20 04:14 Phosphorus 1.7 mg/dL (2.5-4.9) L D 05/20/20 04:14 Magnesium 2.3 mg/dL (1.8-2.4) 05/20/20 04:14 Triglycerides 231 mg/dL (<150) H 05/18/20 05:40 Cholesterol 250 mg/dL (<200) H 05/18/20 05:40 HDL Cholesterol 38 mg/dL (40-60) L 05/18/20 05:40 Cholesterol/HDL Ratio 6.58 05/18/20 05:40 Home Medications: Carvedilol [Coreg] 12.5 mg PO BID #60 tablet 05/20/20 Chlorhexidine 4% [Betasept*] 1 appl TOP SEECOM #1 btl 05/20/20 Ciprofloxacin HCl [Cipro 500 MG Tablet] 500 mg PO BID #14 tab 05/20/20 Doxycycline Hyclate 100 mg PO BID #14 tablet 05/20/20 Metformin HCl 500 mg PO BID #60 tablet 05/20/20 Mupirocin Oint [Bactroban 2% Ointment*] 1 appl TOP SEECOM #1 tube 05/20/20 NPH, Human Insulin Isophane [Humulin N] 25 unit SQ BID #1 bottle 05/20/20 Tramadol HCl [Ultram] 50 mg PO TID PRN #15 tablet 05/20/20 New Medications: Mupirocin Oint [Bactroban 2% Ointment*] 1 appl TOP SEECOM #1 tube Chlorhexidine 4% [Betasept*] 1 appl TOP SEECOM #1 btl Ciprofloxacin HCl [Cipro 500 MG Tablet] 500 mg PO BID #14 tab Carvedilol [Coreg] 12.5 mg PO BID #60 tablet Doxycycline Hyclate 100 mg PO BID #14 tablet NPH, Human Insulin Isophane [Humulin N] 25 unit SQ BID #1 bottle Metformin HCl 500 mg PO BID #60 tablet Tramadol HCl [Ultram] 50 mg PO TID PRN #15 tablet PRN Reason: Pain Scale 5-7 (Moderate) Patient Discharge Instructions: 1. Patient to establish care with PCP to follow up this hospitalization. Patient presented with diabetic ketoacidosis. Patient with new diagnosis diabetes type 2. Patient was admitted for treatment. Patient required IV insulin drip. Diabetic ketoacidosis resolved. Hemoglobin A1c 11.4. Patient was transition to basal insulin. Blood sugars now better controlled. At discharge patient will continue to monitor blood sugars at least twice daily. At discharge patient will continue with metformin 500 mg 1 pill twice daily and insulin NPH 25 units subcu twice daily. Recommend to maintain blood sugars less 140 fasting and less than 200 after meals. Patient may increase insulin NPH by 1-2 units if blood sugar still above 200. Metformin can be further adjusted with the help of a PCP. Education on diabetes and insulin therapy provided. Patient will continue with a 1999 ADA diet. Patient will follow up with a PCP to follow up this hospitalization and to better control his diabetes. 2. Patient found to have leukocytosis. Patient found to have right upper back abscess/cellulitis. Surgery was consulted. Surgical intervention was required. Incision, irrigation debridement was performed. Patient tolerated procedure well. Pathology shows ruptured epidermal inclusion cyst. Wound culture positive for Staph aureus. At discharge patient will continue with current wound care as recommended by surgery. Family will be taught to help patient. Patient will continue with Cipro 500 mg 1 pill twice daily and doxycycline 100 mg 1 pill twice daily for 7 more days. Bactroban ointment to be placed to the umbilicus and nares twice daily for 7 days. Patient will follow up [facility] 1 [facility]. 3. Patient also found to have elevated blood pressure. Hypertension was suspected. Patient was started on medication. Blood pressure now better controlled on medication. At discharge he will continue with carvedilol 12.5 mg 1 pill twice daily. May need to hold medication if blood pressure less than 110 systolic. Recommend to monitor blood pressure daily. Recommend to maintain blood pressure less 150/80. Further adjustment can be done by his PCP. 4. Patient with hyperlipidemia. LDL elevated. Will recommend to start lifestyle modification education and 2000 ADA diet. Recommend to recheck lab in 4-6 weeks. If still elevated will consider medical therapy. This can be addressed by his PCP. 5. Patient with obesity, BMI 47.5. Patient likely with underlying obstructive sleep apnea. Recommend sleep study to be done as an outpatient to further evaluate and address. Patient will continue with lifestyle modification education. Diet: ADA Activity: No lifting more than 10 lbs Followup: Saran Dillard MD [ACTIVE - CAN ADMIT] - Josue Shepard MD [ACTIVE - CAN ADMIT] - 1-2 Weeks ([facility] in my clinic) Time spent managing pt's care (in minutes): 55
[2020-05-20 14:44] VITALS: TEMP 98.9
[2020-05-20] MEDS ORDERED: carvediloL 12.5 MG TAB PO SCH (18:00)
[2020-05-20] MEDS ORDERED: carvediloL 3.125 MG TAB PO SCH (18:00)
[2020-05-20] MEDS ORDERED: carvediloL 6.25 MG TAB PO SCH (18:00)
[2020-05-20 18:17] VITALS: BP 137/94
== END 2020-05-20 17:45 | disposition home or self-care (01) | DRG 623 ==
LOC: ER 16:03 → ERHOLD 18:49
PROVIDERS: ADMIT Family Medicine; ATTEND Family Medicine
PROC: 0JB70ZZ Excision of Back Subcutaneous Tissue and Fascia, Open Approach (ICD-10-PCS; principal; 2020-05-18 10:30)
DX: E11.10 Type 2 diabetes mellitus with ketoacidosis without coma (principal); N17.9 Acute kidney failure, unspecified; Z68.42 Body mass index [BMI] 45.0-49.9, adult; L02.212 Cutaneous abscess of back [any part, except buttock and flank]; L03.312 Cellulitis of back [any part except buttock and flank]; D72.829 Elevated white blood cell count, unspecified; E86.0 Dehydration; E66.01 Morbid (severe) obesity due to excess calories; F17.200 Nicotine dependence, unspecified, uncomplicated; E78.5 Hyperlipidemia, unspecified; G47.33 Obstructive sleep apnea (adult) (pediatric); L72.0 Epidermal cyst; B95.61 Methicillin susceptible Staphylococcus aureus infection as the cause of diseases classified elsewhere; Z88.0 Allergy status to penicillin; Z20.828 Contact with and (suspected) exposure to other viral communicable diseases
CPT/HCPCS: 36415; 71045; 80048; 80061; 80202; 81003; 81015; 82010; 82550; 82805; 82947; 83036; 83735; 84100; 84145; 84439; 84443; 85025; 85379; 86140; 87040; 87070; 87075; 87077; 87086; 87088; 87186; 87205; 88304; 88305; 93005; 96372; 96374; 96375; 99285; J0330; J0456; J0696; J1100; J1644; J1650; J1815; J2250; J2405; J2704; J2765; J3010; J3370; J3480; J7030; J7040; J7050; J7799; U0003